=== PATIENT | male | born 1985 | race Caucasian/White ===

== ENCOUNTER 2016-11-26 20:47 | Emergency (ER) | payer SELFPAY ==
[~2016-11-26 20:47] MED LIST: Etomidate 2 MG/ML 20 ML SDV IVPUSH ONE; Rocuronium 100 MG/10 ML MDV IV ONE; Succinylcholine 200 MG/10 ML MDV IV ONE
[2016-11-26] MEDS ORDERED: Sodium Chloride 0.9% 10 ML Syringe FLUSH PRN (20:54)
[2016-11-26] MEDS ORDERED: Sodium Chloride 0.9% 2.5 ML Syringe FLUSH PRN (20:54)
[2016-11-26] MEDS ORDERED: Sodium Chloride 0.9% 1,000 ML IV ONE (20:55)
[2016-11-26] MEDS ORDERED: Diphtheria,Pertussis(Acell),Tetanus Vaccine 0.5 ML Syringe IM ONE (20:55)
[2016-11-26] MEDS ORDERED: Mannitol 12.5 GM/50 ML SDV IV ONE ×2 (21:05→21:07)
[2016-11-26 21:16] LABS: CHLORIDE,CL 108 mmol/L (98-110); SODIUM,NA 141 mmol/L (136-146)
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
--- NOTE | 2016-11-28 13:10 | CR ---
EXAM DATE: 11/26/16 PATIENT'S AGE: 31 Patient: GERARD DOW Facility: [place], [place] Site . Site : 1985 Study: XRay Pelvis [id number]/17/2017 9:14:47 PM Ordering Physician: Doctor Prado Final Report: INDICATION: Trauma. TECHNIQUE: Portable supine AP view of the pelvis. COMPARISON: None. IMPRESSION: No pelvic or proximal femur fracture is identified on this single view study. The sacroiliac joints, hip joints and pubic symphysis appear unremarkable. Dictated by Kolby Phillips MD @ 11/26/2016 9:19:34 PM Dictated by: Kolby Phillips MD @ 11/26/2016 21:19:38 (Electronic Signature) Report Signed by Proxy. MIRIAM
--- NOTE | 2016-11-28 13:11 | CR ---
EXAM DATE: 11/26/16 PATIENT'S AGE: 31 Patient: GERARD DOW Facility: [place], [place] Site . Site : 1985 Study: XRay Chest [id number]/17/2017 9:15:18 PM Ordering Physician: Doctor Prado Final Report: INDICATION: Trauma. TECHNIQUE: Portable supine AP view of the chest. COMPARISON: None. FINDINGS: Endotracheal tube is present with the tip approximately 2 cm above the tricia. There is artifact from the trauma board. Heart size is normal. There is indistinctness of the aortic knob with slightly increased density seen in the lower right paratracheal region. Pulmonary vasculature appears normal. Lungs are grossly clear. There are mildly displaced right 3rd, 4th, 5th and 6th rib fractures with a small right lateral pneumothorax noted. IMPRESSION: 1. Endotracheal tube as described above. 2. Slight indistinctness of the aortic knob and right paratracheal space. Cannot exclude a vascular injury. Recommend CT. 3. Multiple mildly displaced right rib fractures with a small right pneumothorax. Report called to Dr. Rooney at 9:20 p.m. 11/26/2016. Dictated by Kolby Phillips MD @ 11/26/2016 9:26:30 PM Dictated by: Kolby Phillips MD @ 11/26/2016 21:26:37 (Electronic Signature) Report Signed by Proxy. [facility]
--- NOTE | 2016-11-28 13:12 | CR ---
EXAM DATE: 11/26/16 PATIENT'S AGE: 31 Patient: GERARD DOW Facility: [place], [place] Site . Site : 1985 Study: XRay Spine Cervical [id number]/17/2017 9:15:45 PM Ordering Physician: Doctor Prado Final Report: INDICATION: Trauma. TECHNIQUE: Cross-table lateral view of the cervical spine. COMPARISON: None. IMPRESSION: There is a lucency overlying the parietal calvarium. Cannot exclude a skull fracture. Endotracheal tube is partially visualized, as is a presumed orogastric tube. There is straightening of the visualized portions of the cervical spine, but no appreciable fracture or traumatic malalignment is identified. Of note, the C7 and T1 levels are not visualized due to obscuration by the patient`s shoulder. Dictated by Kolby Phillips MD @ 11/26/2016 9:28:58 PM Dictated by: Kolby Phillips MD @ 11/26/2016 21:29:03 (Electronic Signature) Report Signed by Proxy. MIRIAM
== END 2016-11-26 21:15 ==
LOC: MW.ED 20:47
DX: S09.8XXA Other specified injuries of head, initial encounter (principal); S29.9XXA Unspecified injury of thorax, initial encounter; V29.40XA Motorcycle driver injured in collision with unspecified motor vehicles in traffic accident, initial encounter; Y92.410 Unspecified street and highway as the place of occurrence of the external cause
CPT/HCPCS: 36415; 71010; 72020; 72170; 80053; 80305; 81001; 83690; 85025; 85610; 86850; 86900; 86901; 90471; 90715; 96374; 96375; 99291; G0390; G0480; J0330; J0690; J2150; J7050; 99285